=== PATIENT | male | born 1995 | race Caucasian/White ===

== ENCOUNTER 2020-11-05 02:39 | Emergency (ER) | payer SELFPAY ==
[~2020-11-05] VITALS: Ht 180.3 cm; Wt 68.0 kg
--- NOTE | 2020-11-05 02:56 | PHYS DOC ---
Past History Past Medical History: Alcoholism (ANNA MARIE ANGEL MD) General Adult HPI: HPI: ".. I ve been drinking for a long time... but I decided to go cold turkey two days.. ago.. now I am sicker than a dog.. puking.. .shaking.. hurt all over.. I did start to get my COVID vaccinations... Patient is a 25 year old male who presents with above hx of nausea, vomiting, tremors since quitting alcohol 2 days ago. Patient also completed Covid vaccination 2 days ago. Patient denies any travel or specific ill contacts. Patient has stopped alcohol in the past with no history of seizures. Patient today feels he is dehydrated and having some mild withdrawals from his chronic alcohol use. No history immunosuppression. (ANNA MARIE ANGEL MD) Review of Systems: Review of Systems: Constitutional: Denies fever or chills Eyes: Denies change in visual acuity HENT: Denies nasal congestion or sore throat Respiratory: Denies cough or shortness of breath Cardiovascular: Denies chest pain or edema GI: History of, nausea, vomiting,. Denies bloody stools or diarrhea : Denies dysuria Musculoskeletal: Denies back pain or joint pain Integument: Denies rash Neurologic: Denies headache, focal weakness or sensory changes . Tremors Endocrine: Denies polyuria or polydipsia Lymphatic: Denies swollen glands Psychiatric: History of anxiety (ANNA MARIE ANGEL MD) Family History: Family History: Noncontributory to presentation (ANNA MARIE ANGEL MD) Current Medications: Current Meds: See nursing for home meds (ANNA MARIE ANGEL MD) Allergies: Allergies: No known drug allergies (ANNA MARIE ANGEL MD) Physical Exam: PE: Constitutional: Well developed, well nourished, mild distress, non-toxic appearance. [] HENT: Normocephalic, atraumatic, bilateral external ears normal, oropharynx dry,, no oral exudates, nose normal. [] Eyes: PERRLA, EOMI, conjunctiva normal, no discharge. [] Neck: Normal range of motion, no tenderness, supple, no stridor. [] Cardiovascular:Heart rate regular rhythm, no murmur [] Lungs & Thorax: Bilateral breath sounds clear to auscultation [] Abdomen: Bowel sounds decreased, soft, no tenderness, no masses, no pulsatile masses. [] Skin: Warm, dry, no erythema, no rash. [] Back: No tenderness, no CVA tenderness. [] Extremities: No tenderness, no cyanosis, no clubbing, ROM intact, no edema. [] Neurologic: Alert and oriented X 3, moves all extremities on request, does have distal sensory, no focal deficits noted. DTRs +2 patella brachial. Quirk Sander equal. No drift. Psychologic: Affect anxious, judgement normal, mood normal. [] (ANNA MARIE ANGEL MD) EKG: EKG: My interpretation EKG shows a sinus rhythm at 75 bpm. Slightly prolonged QT interval at 426 ms. QTc interval is 479 ms. No findings acute STEMI of contralateral changes. Time of this EKG G was 259 hours [] (ANNA MARIE ANGEL MD) Radiology/Procedures: Radiology/Procedures: [] (ANNA MARIE ANGEL MD) Heart Score: C/O Chest Pain: N/A HEART Score for Chest Pain: HEART Score for Chest Pain Response (Comments) Value History Slighlty/Non-Suspicious 0 ECG Normal 0 Age < 45 0 Risk Factors No Risk Factors 0 Troponin < Normal Limit 0 Total 0 Risk Factors: Risk Factors: DM, Current or recent (<one month) smoker, HTN, HLP, family history of CAD, obesity. Risk Scores: Score 0 - 3: 2.5% MACE over next 6 weeks - Discharge Home Score 4 - 6: 20.3% MACE over next 6 weeks - Admit for Clinical Observation Score 7 - 10: 72.7% MACE over next 6 weeks - Early Invasive Strategies (ANNA MARIE ANGEL MD) C/O Chest Pain: No (JACQUELIN ALSTON MD) Course & Med Decision Making: Course & Med Decision Making Pertinent Labs and Imaging studies reviewed. (See chart for details) And encouraged the patient continue with alcohol abstinence. Completed his Covid vaccination course. Follow-up primary care. Take multivitamin. Take Zofran 8 mg up to 4 times a day for active nausea and vomiting. Impression 1. Nausea vomiting 2. Dehydration 3. Recent completed Covid vaccination first shot 4. Alcohol withdrawal-mild [] (ANNA MARIE ANGEL MD) Course & Med Decision Making Accepted patient care at shift change. Patient receiving magnesium. Work-up completed prior to shift change. (JACQUELIN ALSTON MD) Dragon Disclaimer: Dragon Disclaimer: This electronic medical record was generated, in whole or in part, using a voice recognition dictation system. (ANNA MARIE ANGEL MD) Departure Departure: Impression: Primary Impression: Alcohol abuse Additional Impression: Dehydration Disposition: HOME / SELF CARE / HOMELESS Condition: STABLE Referrals: PCP,NO (PCP) Patient Instructions: Alcohol Withdrawal Scripts Ondansetron Hcl (ZOFRAN) 4 Mg Tablet 8 MG PO QIDPRN PRN for NAUSEA/VOMITING, #30 TAB Prov: ANNA MARIE ANGEL MD 11/05/20 Dragon Disclaimer This chart was dictated in whole or in part using Voice Recognition software in a busy, high-work load, and often noisy Emergency Department environment. It may contain unintended and wholly unrecognized errors or omissions. (ANNA MARIE ANGEL MD) ANNA MARIE ANGEL MD Nov 05, 2020 02:56 JACQUELIN ALSTON MD Nov 05, 2020 07:13
[2020-11-05] MEDS ORDERED: KETOROLAC 30 MG/ML VIAL. IVP ONE ×2 (03:00→03:15)
[2020-11-05] MEDS ORDERED: ONDANSETRON PF 4 MG/2 ML VIAL. IVP ONE ×2 (03:00→03:15)
[2020-11-05] MEDS ORDERED: FAMOTIDINE 20 MG/2 ML VIAL IVP ONE ×2 (03:00→03:15)
[2020-11-05] MEDS ORDERED: IV RINGERS SOLUTION,LACTATED 1,000 ML IV SCH ×2 (03:00→03:15)
[2020-11-05] MEDS ORDERED: THIAMINE INJ 100 MG in IV NORMAL SALINE 50ML 50 ML IV ONE (03:30)
[2020-11-05 03:54] LABS: CALCIUM 10.1 mg/dL (8.5-10.1); CREATININE 1.1 mg/dL (0.7-1.3); GFR 80.3; POTASSIUM 3.7 mmol/L (3.5-5.1)
[2020-11-05 04:00] LABS: ALBUMIN 4.5 g/dL (3.4-5.0); DIRECT BILIRUBIN 0.6 mg/dL (0.0-0.2); TOTAL PROTEIN 8.6 g/dL (6.4-8.2)
--- NOTE | 2020-11-05 04:11 | RAD ---
XR ABDOMEN COMP ACUTE INDICATION: nv pain COMPARISON STUDY: None. FINDINGS: Lungs: Normal lung volume. No pulmonary mass or consolidation. The tracheobronchial tree and hilar st ructures are normal. Pleura: No pleural effusion or pneumothorax. Heart and Mediastinum: The cardiomediastinal silhouette is normal. The great vessels of the thorax ar e normal. Abdomen: Nonobstructive bowel gas pattern. Moderate colonic stool burden. No free air. IMPRESSION: 1. Nonobstructive bowel gas pattern. Moderate colonic stool burden. 2. No consolidation. Electronically signed by: Julián Santa MD (11/05/2020 4:09 AM) [facility]
[2020-11-05] MEDS ORDERED: THIAMINE 200 MG/2 ML VIAL. IV ONE (04:13)
[2020-11-05] MEDS ORDERED: IV NORMAL SALINE 50ML 50 ML ONE (04:13)
[2020-11-05 04:28] LABS: BASO % 0 % (0-3); EOS % 0 % (0-3); HEMATOCRIT 48.2 % (39.0-53.0); HEMOGLOBIN 16.6 g/dL (13.0-17.5); LYMPH # 0.4 x10^3/uL (1.0-4.8); LYMPH % 7 % (24-48); MEAN CORPUSCULAR HEMOGLOBIN 34 pg (25-35); MEAN CORPUSCULAR HGB CONC 35 g/dL (31-37); MEAN CORPUSCULAR VOLUME 97 fL (79-100); MONO # 0.4 x10^3/uL (0.0-1.1); MONO % 7 % (0-9); NEUT # 4.9 x10^3uL (1.8-7.7); NEUT % 86 % (31-73); PLATELET COUNT 263 x10^3/uL (140-400); RED BLOOD COUNT 4.96 x10^6/uL (4.30-5.70); RED CELL DISTRIBUTION WIDTH 13.7 % (11.5-14.5); WHITE BLOOD COUNT 5.7 x10^3/uL (4.0-11.0)
[2020-11-05] MEDS ORDERED: MAGNESIUM SULFATE 2GM 50 ML IV ONE (05:00)
[2020-11-05] MEDS ORDERED: IV RINGERS SOLUTION,LACTATED 1,000 ML IV ONE (05:00)
[2020-11-05] MEDS ORDERED: ONDA4TAB7 PO (06:14)
[2020-11-05 07:15] VITALS: BP 123/56
--- NOTE | 2020-11-08 13:58 | EKG ---
[address] [address] Test Date: 2020-11-05 Test Time: 02:59:35 Pat Name: LISETH PALMER Department: Room: Gender: M Neuropsychology Medical Consultant: 2 : 1995 Requested By: ANNA MARIE ANGEL Order Number: [id number] Reading MD: Measurements Intervals [place] Rate: 75 P: -32 UT: 140 QRS: 84 QRSD: 94 T: 71 QT: 426 QTc: 479 Interpretive Statements SUPRAVENTRICULAR RHYTHM PROLONGED QT NO SPECIFIC ECG ABNORMALITIES RI6.02 No previous ECG available for comparison
== END 2020-11-05 07:20 | disposition home or self-care (01) ==
LOC: ER 02:39
DX: E86.0 Dehydration (principal); R94.31 Abnormal electrocardiogram [ECG] [EKG]; F10.239 Alcohol dependence with withdrawal, unspecified; Z23 Encounter for immunization; Y90.8 Blood alcohol level of 240 mg/100 ml or more
CPT/HCPCS: 36415; 74022; 80048; 80076; 82550; 82947; 83690; 83735; 84484; 85025; 93005; 96365; 96366; 96368; 96375; 99285; G0480; J1885; J2405; J3475; J3490; J7120